=== PATIENT | male | born 1950 | race Caucasian/White ===

== ENCOUNTER 2016-06-03 10:12 | Outpatient (CLI) | payer OTHER | END 2016-06-03 10:13 | disposition home or self-care (01) | LOC: NC 10:12 | PROVIDERS: ATTEND Family Medicine | DX: E11.65 Type 2 diabetes mellitus with hyperglycemia (principal); Z71.3 Dietary counseling and surveillance ==

== ENCOUNTER 2016-07-16 06:23 | Day surgery (SDC) | payer MEDICARE ==
[~2016-07-16 06:23] MED LIST: IV START KIT ONE; LACTATED RINGERS 0 ML ONE
[2016-07-16] MEDS ORDERED: ONDANSETRON 4 MG/2ML 2 ML VIAL IV PRN (06:42)
[2016-07-16] MEDS ORDERED: LIDOCAINE 1% 2 ML VIAL ID PRN (06:42)
[2016-07-16] MEDS ORDERED: SODIUM CHLORIDE 0.9% 1,000 ML IV SCH (06:42)
[2016-07-16] MEDS ORDERED: PROPOFOL 20 ML IV ONE ×3 (06:48→08:07)
[2016-07-16] MEDS ORDERED: KETAMINE HCL UD SYRINGE 100 MG/2 ML IV ONE (06:49)
[2016-07-16] MEDS ORDERED: SODIUM CHLORIDE 0.9% 1,000 ML ONE ×2 (06:49→08:45)
[2016-07-16] MEDS ORDERED: LIDOCAINE 2% (PRES FREE) 5 ML VIAL ONE (08:07)
--- NOTE | 2016-07-20 10:43 | SURGPATH ---
[facility] [address] [place] [id number] Patient Name: ADRIANA SINGLETON MR#: [id number] : 1950 Gender: M Specimen #: [id number] Collected: 07/16/2016 Received: 07/17/2016 Reported: 07/20/2016 Submitting Phys: DANIA GOINS Copy To Phys: KANDI MOBLEY [facility] Clinical History / Pre-Operative Diagnosis: SCREENING Specimen Source / Surgical Procedure Performed: #1-SIGMOID AT 30 CM; #2-SIGMOID AT 35 CM X2 Interpretation: 1. SIGMOID COLON, AT 30 CM, BIOPSY: - BENIGN POLYPOID COLONIC MUCOSA WITH FOCAL ISCHEMIC CHANGE 2. SIGMOID COLON, AT 35 CM, BIOPSY: - TUBULAR ADENOMA Electronically Signed Out Junior Wilson M.D. Gross Description: #1 The specimen is received in a formalin filled container labeled with the patient's name and "sigmoid at 30 cm x2". A single polypoid boone biopsy is 0.3 cm. Totally embedded in cassette #1. #2 The specimen is received in a formalin filled container labeled with the patient's name and "sigmoid at 35 cm". A polypoid boone biopsy is 0.7 x 0.5 x 0.4 cm. Bisected. Totally embedded in cassette #2. Kalyan Edgar Microscopic Description: 1. Levels reveal a single polypoid fragment of colonic tissue surfaced by tubular glands. Focally there is vascular congestion and and glandular atrophy suggestive of ischemic change. Dysplasia and malignancy are not seen. 2. Levels reveal colonic mucosa surfaced by tubular glands with focal adenomatous features. High grade dysplasia and malignancy are not present. 1: [id number] 2: 68978 D12.5
== END 2016-07-16 09:39 | disposition home or self-care (01) ==
LOC: SDC 06:23
PROVIDERS: ATTEND Surgery
PROC: 0DBN8ZX Excision of Sigmoid Colon, Via Natural or Artificial Opening Endoscopic, Diagnostic (ICD-10-PCS; principal; 2016-07-16)
PROC: 0DBN8ZX Excision of Sigmoid Colon, Via Natural or Artificial Opening Endoscopic, Diagnostic (ICD-10-PCS; 2016-07-16)
DX: Z12.11 Encounter for screening for malignant neoplasm of colon (principal); D12.5 Benign neoplasm of sigmoid colon; K63.5 Polyp of colon; Z86.010 Personal history of colon polyps; E11.9 Type 2 diabetes mellitus without complications
CPT/HCPCS: 45385; 45380; J7030 ×2